=== PATIENT | female | born 1995 | race Caucasian/White ===

== ENCOUNTER → 2018-08-23 12:30 | Outpatient (CLI) | payer MEDICAID | END | disposition home or self-care (01) | LOC: D.LDO 12:30 | PROVIDERS: ATTEND Obstetrics & Gynecology | DX: O26.899 Other specified pregnancy related conditions, unspecified trimester (principal); Z3A.00 Weeks of gestation of pregnancy not specified ==

== ENCOUNTER 2018-09-24 06:05 | Inpatient (IN) | payer MEDICAID ==
[~2018-09-24] VITALS: Ht 170.2 cm; Wt 125.2 kg
[2018-09-24 06:46] LABS: HEMATOCRIT 31.7 % (36.0-48.0); HEMOGLOBIN 9.9 g/dL (12-16); MCH 25.7 pg (26.0-34.0); MCHC 31.2 g/dL (31.0-37.0); MCV 82.3 fL (80.0-100.0); MEAN PLATELET VOLUME 10.9 fL (7.4-10.4); RBC 3.85 10x6/uL (4.00-5.40); RDW 14.9 % (11.5-14.5); WBC 8.8 10x3/uL (4.8-10.8)
[2018-09-24] MEDS ORDERED: PRENAVITE1 TAB PO (06:49)
[2018-09-24 06:50] VITALS: BP 110/60; Ht 170.2 cm; Wt 125.2 kg
[2018-09-24] MEDS ORDERED: FERROUS SULFAT325 MG PO (06:50)
[2018-09-24 07:35] LABS: APPEARANCE CLEAR (CLEAR); BILIRUBIN NEGATIVE (NEGATIVE); COLOR YELLOW (YELLOW); GLUCOSE NEGATIVE (NEGATIVE); KETONE NEGATIVE (NEGATIVE); NITRITE NEGATIVE (NEGATIVE); PROTEIN NEGATIVE (NEGATIVE); UROBILINOGEN NORMAL (NORMAL)
--- NOTE | 2018-09-24 09:30 | NUR ---
FUNDUS PALPATED. FIRM AND MIDLINE.
[2018-09-24 10:15] VITALS: BP 114/54
--- NOTE | 2018-09-24 10:15 | NUR ---
REC'D PT VIA BED BACK FROM RECOVERY POST PRIMARY W/BILATERAL TUBAL LIGATION. PT AA&O X 4. PAIN ASSESSED. PT RATES PAIN 3/10. BREATH SOUNDS CL/=,BOWEL SOUNDS PRESENT X4, BUT HYPOACTIVE. ABD SOFT, NON DISTENDED, FUNDUS FIRM,U/2,SMALL RUBRA LOCHIA AND CLOTS NOTED W/MASSAGE. PERICARE DONE AND PAD PLACED. FUNES CATH IN PLACE AND DRAINING VIA GRAVITY AT BEDSIDE. APRROX 200ML NOTED AND DUMPED. SCD WRAPS ON BILATERALLY. CONNECTED TO PUMP. PUMP IS ON AND FUNCTIONING. POC AND POST TEACHING DONE. PT VERBALZIES UNDERSTANDING AND AGREEABLE. DILUADID ELECTRONICS TEACHER INITITAED TO LEFT WRIST PIV. ELECTRONICS TEACHER BUTTON TEACHING PROVIDED. I.S. PROVIDED W/TEACHING. PT RECEPTIVE AND AGREEABLE. T/C/D TEACHING PROVIDED.
--- NOTE | 2018-09-24 10:30 | NUR ---
FUNDUS FIRM,U/2, SMALL RUBRA LOCHIA NOTED. NO BLOOD CLOTS EXPRESSED W/MASSAGE. ICE CAP TO ABD. COUGH PILLOW PROVIDED. [facility] MUG W/ICE WATER SERVED. BED LOW, SIDE RAILS UP X 2.CALL LIGHT AND TOMBSTONE ERECTOR BUTTON AT PT'S SIDE.
--- NOTE | 2018-09-24 10:45 | NUR ---
PT REMAINS AA&O X4. STILL RATES PAIN 06/13. TORADOL ADMINISTERED. SEE EMAR. PT DENIES NEEDING FURTHER PAIN INTERVENTIONS AT THIS TIME. FAMILY TO BEDSIDE. TO ROOM AT THISTIME PER NBN NURSE Phoebe MNOTEZ LPN.
[2018-09-24 10:47] VITALS: BP 105/55
--- NOTE | 2018-09-24 11:00 | NUR ---
FUNDUS FIRM,U/2, SMALL RUBRA LOCHIA NOTED. NO BLOOD CLOTS EXPRESSED W/MASSAGE. RATES PAIN 3/10. PT DENIES NEEDS AT PRESENT. FAMILY AT BEDSIDE.
--- NOTE | 2018-09-24 11:27 | NUR ---
THIS RN TO BEDSIDE. FUNDUS FIRM,U/U, SMALL RUBRA LOCHIA NOTED. PERICARE DONE. CLEAN PERIPAD PLACED. INCISION C/D/I W/SMALL WHITE BANDAGE COVERING. FAINT BLEEDING NOTED. NO DRAINAGE NOTED. PT PERFORMS I.S. X 3. COUGHS W/GOOD EFFORT. RATES PAIN 1/10. DENIES NEEDS AT THIS TIME. Q 15MIN VITALS STOPPED AT THIS TIME TO CONTINUE W/Q 4HRS SHIFT. PHONE AT PT'S SIDE. PT DENIES NEEDING DILAUDID ICE SKATING TEACHER AT THIS TIME.
--- NOTE | 2018-09-24 14:30 | NUR ---
TO PT'S ROOM, PT IS SITTING UP IN THE BED HOLDING . VISITOR AT BEDSIDE. LARGE GLASS OF ICE WATER SERVED TO PT AT HER REQUEST. FUNES CATH CONTINUES TO DRAIN LIGHT YELLOW URINE. PT DENIES NEEDS AT THIS TIME. SRUP X2, CALL LIGHT AND PHONE WITHIN REACH. PT DENIES SOB, NAUSEA, OR DIFFICULTY BREATHING.
[2018-09-24 15:26] LABS: BASOPHILS 0.1 % (0-2); EOSINOPHILS 0.2 % (0-7); HEMATOCRIT 27.9 % (36.0-48.0); HEMOGLOBIN 8.7 g/dL (12-16); IMMATURE GRANULOCYTES 0.2 % (0-5); LYMPHOCYTES 14.8 % (15-50); MCH 25.7 pg (26.0-34.0); MCHC 31.2 g/dL (31.0-37.0); MCV 82.5 fL (80.0-100.0); MEAN PLATELET VOLUME 10.4 fL (7.4-10.4); MONOCYTES 5.6 % (2-11); NEUTROPHILS 79.1 % (40-80); RBC 3.38 10x6/uL (4.00-5.40)
[2018-09-24 15:28] LABS: PLATELET COUNT 170 10x3/uL (130-400); WBC 13.1 10x3/uL (4.8-10.8)
--- NOTE | 2018-09-24 18:45 | NUR ---
PT SITTING UP IN THE BED INFANT. SMALL RUBRA LOCHIA NOTED, PERICARE DONE WITH WARM WET WASHCLOTHS. PERIPADS APPLIED. 4 DIME SIZED AREAS TO LEFT AND MID MIDDLE OF DRESSING NOTED TO BE LIGHT PINK IN COLOR, PLACES CIRCLED FOR FUTURE COMPARISON, OTHERWISE DRESSING C/D/I. ABD PALPATES SOFT. FRESH ICE PACK PLACED OVER GOWN TO INCISION. PT RATING PAIN TO INCISIONAL SITE 3/10, DENIES OTHER NEEDS. SRUP X 2, CALL LIGHT AND PHONE WITHIN REACH. VISITOR AT BEDSIDE.
[2018-09-24 18:48] VITALS: BP 102/57
--- NOTE | 2018-09-24 18:55 | NUR ---
PT CONTINUES TO BREASTFEED, DOES NOT WANT TO BE DISTURBED AT THIS TIME.
--- NOTE | 2018-09-24 19:45 | NUR ---
C/O PAIN 4-08/13. CONDUIT REAMER OPERATOR CURRENTLY INFUSING. DISCUSSED OPTIONS FOR BOLUS DOSE. PT REQUEST BOLUS. GIVEN PER REQUEST. VERIFIED BY Brittney ALEX RN.
--- NOTE | 2018-09-24 19:51 | NUR ---
SHIFT ASSESSMENT COMPLETED PER FLOWSHEET. FUNDUS FIRM, MIDLINE AND U2 WITH SCANT RUBRA LOCHIA, NO CLOTS NOTED. PT MOVING INDEPENDENTLY IN BED. CHUX, PADS, AND TOWELS CHANGED. FUNES AND PERICARE DONE. BOWEL SOUNDS PRESENT AND ACTIVE X4 QUADS. FUNES DRAINING TO BEDSIDE DRAINAGE WITH 150 MLS YELLOW URINE NOTED IN UROMETER. PT REPORTS THAT SHE HAS NOT PASSED FLATUS, "BUT I FEEL GAS BUILDING. I REALLY WANT TO GET UP TO WALK SOON I CAN." PLAN OF CARE DISCUSSED, VERBALIZES UNDERSTANDING AND AGREEMENT CURRENTLY. LOWER TRANSVERSE DRSG COVERING INCISION. NO NEW DRAINAGE NOTED FROM AREAS PREVIOUSLY MARKED BY DAY SHIFT RN. REPORTS THAT PAIN "IS ALREADY GETTING BETTER. 3-07/14 INSTEAD OF 4-510." REPORTS THAT PAIN IS INTERMITTENT ABD CRAMPING, "ESPECIALLY DURING AND AFTER " AND INCISIONAL BURNING, STINGING, AND SORENESS. EDUCATED ON PAIN MGMT TECHNIQUES INCLUDING USE OF CLINICAL APPEALS SPECIALIST BUTTON NEEDED, ICE PACK, AND REPOSITIONING IN BED. INCENTIVE SPIROMETER USED X5 WITH GOOD EFFORT, COUGH AND DEEP BREATHING DONE WITH GOOD EFFORT. EDUCATED ON IMPORTANCE OF USE OF INCENTIVE SPIROMETER AND COUGH/TURNING/DEEP BREATHING AT LEAST Q 2 HR, VERBALIZES UNDERSTANDING. REPOSITIONED SELF FROM BACK TO RT SIDE WITH NO ASSISTANCE, PILLOW PLACED BEHIND BACK FOR COMFORT AND SUPPORT. SCD'S OFF BLE PER PT REQUEST, STATES "MY LEGS ARE REALLY HOT. I JUST NEED A BREAK FROM THEM TO COOL DOWN AND TO BE ABLE TO MOVE MY LEGS BETTER." AGREEABLE FOR SCD'S TO BE PLACED BACK ON BLE IN 1-2 HOURS, EDUCATED ON IMPORTANCE OF SCD'S IN PREVENTION OF DVT'S, VERBALIZES UNDERSTANDING. FRIEND AT BEDSIDE, SUPPORTIVE AND ATTENTIVE TO PT AND NEEDS. ICE WATER PROVIDED. DENIES ADDITIONAL NEEDS. BED IN LOW POSITION WITH UPPER SIDE RAILS RAISED X2. CALL LIGHT AND PHONE WITHIN REACH. WILL CONTINUE TO MONITOR.
--- NOTE | 2018-09-24 20:41 | NUR ---
CHANGING INFANTS DIAPER. PAIN CURRENTLY 1-2 FOLLOW BOLUD DOSE FROM PACKING AND STAMPING MACHINE OPERATOR. DENIES NEEDS AT THIS TIME. QUESTIONS RN ABOUT SITTING ON EDGE OF BED. RN ASSISTED TO SITTING POSITION ON EDGE OF BED. REMAINED IN SITTING POSITION FOR 5 MINUTES. ASSISTED BACK TO HIGH FOWLERS POSITION IN BED. POSITIONED SELF UP IN BED. INCENTIVE SPIROMETER USED. COUGH AND DEEP BREATHING DONE WITH GOOD EFFORT. DENIES NEEDS. BED IN LOW POSITION WITH UPPER SIDE RAILS RAISED X2. CALL LIGHT AND PHONE WITHIN REACH. REQUESTS TO LEAVE SCD'S OFF AT THIS TIME. WILL CONTINUE TO MONITOR.
--- NOTE | 2018-09-24 21:21 | NUR ---
BONDING WITH INFANT IN ARMS. C/O "ITCHING FROM HEAD TO TOE. IT STARTED ON JUST MY FACE BUT I HAVE NOTICED IT HAPPENS AFTER I USE MY BUTTON AND IT HAS GOTTEN TO WERE IT IS ALL OVER." CONTINUES TO REPORT THAT SHE WOULD LIKE TO GET OUT OF BED AND AMBULATE ALSO. WILL NOTIFY DR. KNIGHT.
--- NOTE | 2018-09-24 21:24 | NUR ---
DR. KNIGHT NOTIFIED OF PT C/O ITCHING FOLLOWING USING APPROVER BUTTON AND REQUEST TO AMBULATE ON UNIT. ORDERS REC'D FOR 1 TIME DOSE OF 50 MG IVP BENADRYL, D/C FUNES, AMBULATE, SL PIV, AND ADVANCE DIET TOLERATED. PT NOTIFIED OF NEW ORDERS AND UPDATED ON PLAN OF CARE, VERBALIZES APPRECIATION AND UNDERSTANDING. CURRENTLY BREAST FEEDING AND REQUESTS TO COMPLETE PRIOR TO HAVING FUNES D/C'D.
--- NOTE | 2018-09-24 21:34 | NUR ---
50 MG IVP BENADRYL GIVEN PER ORDER. EDUCATED ON MEDICATION USE AND POSSIBLE SIDE EFFECTS. ENCOURAGED TO INCREASE PO INTAKE, VERBALIZES UNDERSTANDING. DENIES QUESTIONS. WILL NOTIFY RN WHEN IS COMPLETE. ICE WATER PROVIDED. DENIES ADDITIONAL NEEDS AT THIS TIME. BED IN LOW POSITION WITH UPPER SIDE RAILS RAISED X2. CALL LIGHT AND PHONE WITHIN REACH. WILL CONTINUE TO MONITOR AND ASSIST PRN.
--- NOTE | 2018-09-24 22:32 | NUR ---
BONDING WITH . C/O PAIN 06/13, ABD CRAMPING AND INCISIONAL BURNING AND STINGING. "I JUST FEEL SORE FROM BEING IN THIS BED." PIV SL, FLUSHES WITHOUT DIFFICULTY. PT REQUEST TORADOL, STATES "IT SEEMS TO HELP PAIN BETTER THAN MY BUTTON." NORCO GIVEN ALSO PER PT REQUEST. FUNES D/C'D WITH 480 MLS YELLOW URINE EMPTIED FROM FUNES. DISCUSSED REMAINING IN BED UNTIL URGE TO VOID WAS FELT OR GETTING UP NOW. STATES "I WANT UP NOW." REPORTS FEELING "GAS PAIN BUT I JUST CAN'T GET IT TO MOVE AND I KNOW IT'S BECAUSE I HAVEN'T BEEN UP AND MOVING YET." ASSISTED TO EDGE OF BED, SAT ON EDGE OF BED FOR 3 MINUTES, DENIES DIZZINESS. PT TO STANDING POSITION WITH STAND BY ASSIST OF RN, CONTINUES TO DENY DIZZINESS, INSTRUCTED TO CONTINUE BREATHING, AVOIDING HOLDING BREATH AND TAKING SMALL STEPS INITIALLY, VERBALIZES AND DEMONSTRATES UNDERSTANDING. AMBULATORY TO BATHROOM WITH STANDBY ASSIST, STEADY GAIT NOTED, CONTINUES TO DENY DIZZINESS. PERICARE DONE PER PT, STAT LOCK FOR FUNES REMOVED WITH ALCOHOL PADS. PERIPADS AND PANTIES PROVIDED, VOIDED APPROXIMATELY 50 MLS PINK TINGED URINE IN HAT. SMALL DIME SIZED CLOT NOTED IN HAT. CHUX AND GOWN CHANGED. PT BACK TO BED, SITTING ON EDGE OF BED AT 2258, CONTINUES TO DENY DIZZINESS/LIGHTHEADEDNESS. REQUEST TO AMBULATE IN HALLWAY.
--- NOTE | 2018-09-24 22:58 | NUR ---
AMBULATORY IN [place] WITH STANDBY ASSIST OF RN. STEADY GAIT.
[2018-09-24 23:06] VITALS: BP 116/60
--- NOTE | 2018-09-24 23:15 | NUR ---
BACK TO ROOM FROM AMBULATING IN [place] WITH RN FOR STANDBY ASSIST. PAIN REASSESSMENT COMPLETED, 05/16. STATES "IT FEELS WAY BETTER JUST BEING UP OUT OF THIS BED." STEADY GAIT NOTED DURING AMBULATION, DENIES DIZZINESS AND LIGHTHEADEDNESS. BACK TO BED. VSS. FUNDUS REMAINS FIRM, MIDLINE AND U2 WITH SMALL AMT RUBRA LOCHIA, NO CLOTS NOTED. SCD'S BACK ON BLE. HANDED TO PT PER REQUEST FOR BONDING. ICE PACK AND ICE WATER PROVIDED. DENIES ADDITIONAL NEEDS AT THIS TIME. FRIEND REMAINS AT BEDSIDE, SUPPORTIVE AND ATTENTIVE TO PT AND INFANT NEEDS. BED IN LOW POSITION WITH UPPER SIDE RAILS RAISED X2. CALL LIGHT AND PHONE WITHIN REACH. LOWER TRANSVERSE ABD DRSG REMAINS IN PLACE, NO NEW DRAINAGE NOTED FROM PREVIOUSLY MARKED AREAS. WILL CONTINUE TO MONITOR.
[2018-09-25] VITALS (7 sets, daily range): BP systolic 99–125; BP diastolic 52–60
--- NOTE | 2018-09-25 01:00 | NUR ---
STANDBY ASSIST TO BATHROOM. VOIDED 300 MLS CLEAR LIGHT YELLOW URINE IN HAT, NO CLOTS NOTED. SCANT RUBRA LOCHIA TO PERIPADS. PERICARE DONE PER PT. ORAL CARE DONE PER PT. BACK TO BED. SCD'S OFF BLE PER PT REQUEST. PIV REMOVED FROM RIGHT HAND PER PT REQUEST, PIV TO LEFT WRIST REMAINS IN PLACE. DENIES ADDITIONAL NEEDS. BED IN LOW POSITION WITH UPPER SIDE RAILS RAISED X2. CALL LIGHT AND PHONE WITHIN REACH. WILL CONTINUE TO MONITOR AND ASSIST PRN.
--- NOTE | 2018-09-25 02:40 | NUR ---
C/O PAIN 5/10, ABD SORENESS, CRAMPING WITH INCISIONAL BURNING AND STINGING. NORCO GIVEN PER PT REQUEST AND ORDER. ICE PACK AND ICE WATER PROVIDED. REQUEST SCD'S REMAIN OFF. INCENTIVE SPIROMETER DONE, COUGH AND DEEP BREATHING DONE WITH GOOD EFFORT. REPOSITIONED INDEPENDENTLY TO LEFT SIDE. PILLOW PLACED BEHIND BACK FOR COMFORT AND SUPPORT. VSS. FUNDUS REMAINS FIRM, MIDLINE AND U2 WITH SCANT RUBRA LOCHIA. BED IN LOW POSITION WITH UPPER SIDE RAILS RAISED X2. CALL LIGHT AND PHONE WITHIN REACH. WILL CONTINUE TO MONITOR AND ASSIST PRN.
[2018-09-25 03:15] LABS: BASOPHILS 0.1 % (0-2); EOSINOPHILS 0.5 % (0-7); HEMATOCRIT 26.4 % (36.0-48.0); HEMOGLOBIN 8.2 g/dL (12-16); IMMATURE GRANULOCYTES 0.2 % (0-5); LYMPHOCYTES 16.4 % (15-50); MCH 25.7 pg (26.0-34.0); MCHC 31.1 g/dL (31.0-37.0); MCV 82.8 fL (80.0-100.0); MEAN PLATELET VOLUME 10.8 fL (7.4-10.4); NEUTROPHILS 74.8 % (40-80); PLATELET COUNT 144 10x3/uL (130-400); RBC 3.19 10x6/uL (4.00-5.40); RDW 14.9 % (11.5-14.5); WBC 10.2 10x3/uL (4.8-10.8)
--- NOTE | 2018-09-25 03:23 | NUR ---
PAIN REASSESSMENT COMPLETED. PT CONTINUES TO LAY ON LEFT SIDE. RESPIRATIONS REGULAR AND UNLABORED, NO S/S OF DISTRESS NOTED. BED IN LOW POSITION WITH UPPER SIDE RAILS RAISED X2. CALL LIGHT AND PHONE WITHIN REACH. WILL CONTINUE TO MONITOR AND ASSIST PRN. FRIEND REMAINS AT BEDSIDE RESTING ON COUCH.
--- NOTE | 2018-09-25 04:53 | NUR ---
C/O PAIN 5/10, INTERMITTENT ABD CRAMPING, INCISIONAL BURNING AND STINGING, AND ABD SORENESS. REQUEST MOTRIN, GIVEN PER PT REQUEST. ICE WATER PROVIDED. PT HAD BEEN UP TO VOID PRIOR TO CALLING FOR PAIN MEDS. 600 MLS CLEAR LIGHT YELLOW EMPTIED FROM HAT, NO CLOTS PRESENT. SCD'S BACK ON. INCENTIVE SPIROMETER DONE WITH GOOD EFFORT. COUGH AND DEEP BREATHING DONE WITH GOOD EFFORT. NBN CONTACTED FOR UPDATE ON AND TO REQUEST BE BROUGHT TO ROOM. PER Desire SHEPARD, MASON SHE WILL BRING INFANT TO ROOM PER MOM'S REQUEST. REPORTS THAT SHE FEELS NEED TO PASS FLATUS BUT IS UNABLE TO EVEN AFTER WALKING IN ROOM. ENCOURAGED TO AMBULATE IN [place] ALSO. DR. KNIGHT CONTACTED AND ORDERS REC'D FOR 80 MG PO SIMETHICONE Q4HPRN GAS/HEARTBURN. DENIES ADDITIONAL NEEDS. BED IN LOW POSITION WITH UPPER SIDE RAILS RAISED X2. CALL LIGHT AND PHONE WITHIN REACH.
--- NOTE | 2018-09-25 05:03 | NUR ---
UNABLE TO OVERRIDE SIMETHCONE PER ORDER. MED AVAILABLE ON UNIT. MICHELLE SASH CLAMP OPERATOR NOTIFIED AND WILL COME TO UNIT TO PULL MED. PT NOTIFIED OF ORDER REC'D AND DELAY IN RECEIVING MEDICATION, VERBALIZES UNDERSTANDING.
--- NOTE | 2018-09-25 05:21 | NUR ---
80 MG SIMETHCONE PO GIVEN PER ORDER AND PT REQUEST. EDUCATED ON MED, VERBALIZES UNDERSTANDING AND DENIES QUESTIONS. PREPARING TO BREAST FEED INFANT AT THIS TIME. DENIES ADDITIONAL NEEDS. PAIN 3-10. BED IN LOW POSITION WITH UPPER SIDE RAILS RAISED X2. CALL LIGHT AND PHONE WITHIN REACH. WILL CONTINUE TO MONITOR.
--- NOTE | 2018-09-25 05:53 | NUR ---
UP TO BATHROOM. VOIDED 650 MLS CLEAR LIGHT YELLOW URINE IN HAT. NO CLOTS NOTED. SCANT RUBRA LOCHIA TO PERIPAD. AMBULATORY IN [place] FROM ROOM TO OR DOORS AND TO WAITING ROOM EXIT DOOR, BACK TO ROOM. REPORTS THAT SHE FEELS LIKE SHE NEEDS TO PASS FLATUS BUT STILL HAS NOT BEEN ABLE TO. BOWEL SOUNDS PRESENT AND ACTIVE X4 QUADRANTS. BACK TO ROOM REMAINS SITTING ON EDGE OF BED AT THIS TIME. REFUSES SCD'S CURRENTLY. REQUESTS NORCO FOR INCISIONAL PAIN ONCE IT IS DUE, UPDATED ON TIMES AND WILL PLAN TO MEDICATE PER PT REQUEST. BED IN LOW POSITION WITH UPPER SIDE RAILS RAISED X2. CALL LIGHT PLACED WITHIN PT REACH.
--- NOTE | 2018-09-25 06:15 | NUR ---
PAIN 5/10, SHARP SHOOTING "GAS PAINS", "SOME CRAMPING AND SORENESS" AND INCISIONAL BURNING AND STINGING. NORCO GIVEN PER REQUEST. VSS. FUNDUS REMAINS FIRM MIDLINE AND U2 WITH SCANT RUBRA LOCHIA, NO CLOTS NOTED. LOWER TRANSVERSE ABD DRSG REMAINS INTACT, NO NEW DRAINAGE FROM PREVIOUSLY MARKED AREAS. REFUSES SCD'S AT THIS TIME. DENIES ADDITIONAL NEEDS. BED IN LOW POSITION WITH UPPER SIDE RAILS RAISED X2. CALL LIGHT AND PHONE WITHIN REACH. WILL CONTINUE TO MONITOR AND ASSIST PRN.
[2018-09-25 07:15] LABS: RAPID PLASMA REAGIN Non Reactive (Non Reactive)
--- NOTE | 2018-09-25 07:25 | NUR ---
ASSUMED CARE OF THIS PATIENT. ALERT AND ORIENTED. IN ROOM IN CRIB. S/P C/S DAY 1. 06/13 INCISIONAL/ABDOMINAL SORENESS SHARPNESS. VOIDING WITHOUT DIFFICULTY. HAS NOT PASSED GAS- DISCUSSED METHODS TO HELP RELIEF. C/O GENERALIZED ITCHING. SAYS NOT HAS BAD WITH DILAUDID BUT NOTICED AGAIN AFTER TAKING NORCO. WILL LET DR KNIGHT KNOW. O+, RUBELLA IMMUNE,GBS NEGATIVE, LAST RECEIVED TDAP 07/22/2018. NON-SMOKER. CARE PLAN RESEQUENCED. ANTICIPATE DC HOME TOMORROW. DENIES NEEDING ANYTHING AT THIS TIME. WILL COMPLETE SHIFT ASSESSMENT AFTER BREAKFAST.
--- NOTE | 2018-09-25 07:30 | NUR ---
DR KNIGHT ON L&D INFORMED OF PT CO OF PRURITIS AFTER NORCO. NEW ORDERS RECEIVED FOR BENADRYL AND CHANGE TO PERCOCET SEE V.O. ORDERS WRITTEN.
--- NOTE | 2018-09-25 08:39 | NUR ---
BENADRYL 25 MG GIVEN PO FOR RELIEF OF GENERALIZED PURITIS. NO HIVES OR ERRYTHEMA NOTED. SHIFT ASSESSMENT COMPLETED. SIDERAILS UP. CALL LIGHT IN REACH. VISITOR X 1 IN ROOM. INFANT IN ARMS.
--- NOTE | 2018-09-25 09:36 | NUR ---
DR CHANEY CALLED TO CHECK ON PATIENT. INFORMED THAT PT HAD BEEN NORMALIZED PER DR PEREZ ORDERS, PT WITH C/O PRURITIS WHILE ON DILAUDID AND NORCO BUT SWITCHED TO PERCOCET AND REVIEWED LAST 3 H&H RESULTS WITH MD. PER MD HE WILL BE IN TO SEE HER. PT CURRENTLY SITTING UP IN BED. NURSERY RN RETURNED INFANT TO ROOM. SAYS HER ITCHING IS GETTING BETTER. SIDE RAILS UP X 2, CALL LIGHT IN REACH.
--- NOTE | 2018-09-25 09:50 | NUR ---
HOLDING IN ARMS. SAYS HER PAIN IS ABOUT A 4 STATES "I DON'T THINK I NEED ANYTHING RIGHT NOW BUT I MIGHT IN AWHILE". INSTRUCTED TO USE CALL LIGHT WHEN SHE THINKS SHE WILL NEED MEDICATION. VERBALIZED UNDERSTANDING.
--- NOTE | 2018-09-25 09:51 | NUR ---
DR CHANEY ARRIVED AND TO ROOM TO VISIT PATIENT.
--- NOTE | 2018-09-25 10:13 | NUR ---
PERCOCET 5 MG GIVEN PO FOR RELIEF OF 5/10 INCISIONAL PAIN AFTER DISCUSSING PAIN MANAGEMENT OPTIONS. C/O SORENESS AT SALINE LOCK SITE, REQUEST REMOVAL STATES "HE (DR CHANEY) SAID IT CAN BE TAKEN OUT". SALINE LOCK DC'D WITH TIP INTACT. INSTRUCTED TO CALL WHEN READY TO TAKE A SHOWER. VERBALIZED UNDERSTANDING. SIDE RAILS UP X 2, CALL LIGHT IN REACH, VISITOR ON COUCH HOLDING .
--- NOTE | 2018-09-25 11:27 | NUR ---
COMPLETED SHOWER. LINENS CHANGED. C/O 4-08/13 INCISIONAL ACHING. MOTRIN 600 MG GIVEN PO FOR RELIEF OF PAIN. AND VISITOR IN ROOM. VS OBTAINED. INCISION DRY AND INTACT WITH OLIVIA. INSTRUCTED ON USE OF WHIT-PAD OVER INCISION AND IMPORTANCE OF CHANGING FREQUENTLY. SIDE RAILS UP X 2, CALL LIGHT IN REACH.
--- NOTE | 2018-09-25 12:19 | NUR ---
07/14 PAIN. STATES "IT'S NOT BAD" HAS STARTED PASSING GAS PER PT STATEMENT. ENCOURAGED TO AMBULATE IN [place] AFTER LUNCH. VERBALIZED UNDERSTANDING. NO REQUEST. WAITING ON TRAY. VISITOR AND IN ROOM. SIDE RAILS UP X 2, CALL LIGHT IN REACH.
--- NOTE | 2018-09-25 14:45 | NUR ---
SITTING UP IN BED TALKING TO VISITORS. INFANT REMAINS IN ROOM. NO REQUESTS AT PRESENT. TO CALL IF ANYTHING IS NEEDED. SIDERAILS UP X 2, CALL LIGHT IN REACH.
--- NOTE | 2018-09-25 15:24 | NUR ---
SITTING UP IN BED . SAYS HER PAIN IS "STILL ABOUT THE SAME 3/10 SORENESS". DENIES NEEDING ANYTHING AT THIS TIME. FRESHWATER GIVEN. VISITORS IN ROOM. SIDE RAILS UP X 2, CALL LIGHT IN REACH.
--- NOTE | 2018-09-25 16:39 | NUR ---
RETURNED FROM AMBULATING IN [place]. REQUESTED PAIN MEDICATION FOR 5/10 INCISIONAL BURNING. PERCOCET 10 GM GIVEN PO AFTER DISCUSSING OPTIONS. REGULAR DIET SERVED. VISITORS AND REMAIN IN ROOM. SIDE RAILS UP X 2, CALL LIGHT IN REACH. U/1 FIRM. INCISION INTACT WITH STABLES WITHOUT ERRYTHEMA OR DRAINAGE. SAYS SHE IS NOT HAVING ANY BLEEDING. TO CALL IF ANYTHING IS NEEDED.
--- NOTE | 2018-09-25 18:05 | NUR ---
SITTING UP IN BED . REQUESTED BREAST SHIELD WHICH WAS GIVEN BY NURSERY RN. INCISIONAL ACHING 04/15. FRESH WATER GIVEN. NO ADDITONAL REQUESTS. VISITORS IN ROOM.
--- NOTE | 2018-09-25 19:27 | NUR ---
BEDSIDE REPORT REC'D FROM Ana Cristina COLUNGA RN. PT REC'D SITTING IN HIGH FOWLERS POSITION BONDING WITH . C/O INCISIONAL AND ABD PAIN 5/10. REQUEST MOTRIN, WILL PROVIDE PER ORDER AND PT REQUEST. DENIES ADDITIONAL NEEDS AT THIS TIME. FRIEND RESTING ON COUCH AT BEDSIDE.
--- NOTE | 2018-09-25 19:29 | NUR ---
C/O INCISIONAL AND ABD PAIN, 08/13. MOTRIN GIVEN PER ORDER AND PT REQUEST. CURRENTLY BONDING WITH INFANT. ICE WATER PROVIDED. DENIES ADDITIONAL NEEDS. BED IN LOW POSITION WITH UPPER SIDE RAILS RAISED X2. CALL LIGHT AND PHONE WITHIN REACH. WILL CONTINUE TO MONITOR AND ASSIST PRN.
--- NOTE | 2018-09-25 20:32 | NUR ---
SHIFT ASSESSMENT COMPLETED PER FLOWSHEET. VSS. FUNDUS FIRM, MIDLINE AND U2 WITH SCANT RUBRA LOCHIA, NO CLOTS NOTED. PT REPORTS THAT SHE HAS HAD SCANT LOCHIA ALL DAY AND HAS NOT PASSED ANY CLOTS. STATES THAT SHE IS PASSING FLATUS AND VOIDING WITHOUT DIFFICULTY. BOWEL SOUNDS PRESENT AND ACTIVE X4. C/O INCREASE IN PAIN 6/10 ABD SORENESS AND CRAMPING WITH INCISIONAL BURNING AND STINGING. REPORTS THAT MOTRIN DID NOT DECREASE PAIN AT ALL. PERCOCET GIVEN PER ORDER AND PT REQUEST. SLIGHT ECCHYMOSIS NOTED TO BILATERAL NIPPLES, INSTRUCTED ON PROPER LATCH AND NIPPLE CARE. REPORTS THAT SHE IS NOW USING A SHIELD AND LANOLIN PRN. EDUCATED ON USE OF WARM TEA BAGS ALSO FOR PAIN RELIEF, VERBALIZES UNDERSTANDING. LOWER TRANSVERSE ABD INCISION WELL APPROXIMATED WITH OLIVIA INTACT, NO DRAINAGE OR S/S OF INFECTION. PT VERBALIZED UNDERSTANDING OF INCISIONAL CARE. ICE WATER PROVIDE. TOWELS AND LINENS PROVIDED FOR FRIEND WHO WILL BE STAYING WITH PT TONIGHT. DENIES ADDITIONAL NEEDS. REFUSES SCD'S. STATES THAT SHE IS GOING TO BREAST FEED INFANT THEN AMBULATE ON UNIT. BED IN LOW POSITION WITH UPPER SIDE RAILS RAISED X2. CALL LIGHT AND PHONE WITHIN REACH. WILL CONTINUE TO MONITOR AND ASSIST PRN.
--- NOTE | 2018-09-25 21:23 | NUR ---
PAIN REASSESSMENT COMPLETED. PAIN 1-05/16, "IT'S MUCH BETTER." BONDING WITH SKIN TO SKIN. DENIES NEEDS AT THIS TIME. WILL CONTINUE TO MONITOR AND ASSIST PRN. CONTINUES TO REFUSE SCD'S. BED IN LOW POSITION WITH UPPER SIDE RAILS RAISED X2. CALL LIGHT AND PHONE WITHIN REACH.
--- NOTE | 2018-09-25 22:13 | NUR ---
AMBULATORY IN [place]. STEADY GAIT NOTED. PAIN 3/10, ABD SORENESS AND INCISIONAL BURNING AND STINGING. DENIES NEED FOR INTERVENTION. ICE WATER PROVIDED. DENIES ADDITIONAL NEEDS. WILL CONTINUE TO MONITOR.
--- NOTE | 2018-09-25 23:14 | NUR ---
PT CALLS VIA CALL LIGHT REQUESTS V/S CHECK. STATES THAT SHE JUST COMPLETED AND IS GOING TO GO TO SLEEP AND DOES NOT WANT TO WOKE UP FOR V/S IN AN HOUR OR TWO. VSS. FUNDUS FIRM, MIDLINE AND U2, SCANT RUBRA LOCHIA NO CLOTS NOTED. REPORTS THAT SHE JUST VOIDED. LOWER TRANSVERSE ABD INCISION REMAINS WELL APPROXIMATED WITH OLIVIA INTACT, NO DRAINAGE NOTED. PERIPAD REPLACED OVER INCISION BETWEEN ABD FOLD. ICE WATER PROVIDED. PAIN 3/10, ABD CRAMPING AND SORENESS WITH INCISIONAL BURNING AND STINGING. DENIES NEED FOR INTERVENTION. BED IN LOW POSITION WITH UPPER SIDE RAILS RAISED X2. CALL LIGHT AND PHONE WITHIN REACH. FRIEND REMAINS AT BEDSIDE, SUPPORTIVE AND ATTENTIVE TO PT AND INFANT NEEDS. WILL CONTINUE TO MONITOR.
--- NOTE | 2018-09-26 00:04 | NUR ---
CALLS VIA CALL LIGHT. REQUEST PAIN MEDICATION. C/O PAIN 09/13, ABD SORENESS, CRAMPING AND INCISIONAL BURNING AND STINGING. PERCOCET GIVEN PER REQUEST AND ORDER. ICE WATER PROVIDED. REFUSES SCD'S. DENIES ADDITIONAL NEEDS. STATES THAT SHE IS GOING TO TRY TO SLEEP WHILE INFANT IS SLEEPING. IN OPEN CRIB AT BEDSIDE. FRIEND REMAINS AT BEDSIDE, SUPPORTIVE AND ATTENTIVE TO PT AND NEEDS. BED IN LOW POSITION WITH UPPER SIDE RIALS RAISED X2. CALL LIGHT AND PHONE WITHIN REACH. WILL CONTINUE TO MONITOR AND ASSIST PRN.
--- NOTE | 2018-09-26 00:47 | NUR ---
PAIN REASSESSMENT COMPLETED. RESTING WITH EYES CLOSED LAYING ON LT SIDE WITH HOB AT 30 DEGREES. RESPIRATIONS REGULAR AND UNLABORED, NO S/S OF DISTRESS NOTED. PT DOES NOT OPEN EYES WHEN DOOR OPENS AND RN ENTERS ROOM, PT NOT DISTURBED TO ALLOW FOR REST. BED IN LOW POSITION WITH UPPER SIDE RAILS RAISED X2. CALL LIGHT AND PHONE WITHIN REACH. WILL CONTINUE TO MONITOR. FRIEND RESTING ON COUCH AT BEDSIDE. REMAINS IN ROOM RESTING QUIETLY IN OPEN CRIB.
--- NOTE | 2018-09-26 02:36 | NUR ---
LAYING ON RT SIDE RESTING WITH EYES CLOSED WITH HOB AT 15 DEGREES. RESP REGULAR AND UNLABORED, NO S/S OF DISTRESS NOTED. INFANT RESTING QUIETLY IN OPEN CRIB AT BEDSIDE. FRIEND RESTING ON COUCH. BED IN LOW POSITION WITH UPPER SIDE RAILS RAISED X2. CALL LIGHT AND PHONE WITHIN REACH. WILL CONTINUE TO MONITOR AND ASSIST PRN.
--- NOTE | 2018-09-26 03:04 | NUR ---
AMBULATORY IN WIN. STEADY GAIT NOTED. ICE WATER PROVIDED. DENIES ADDITIONAL NEEDS AT THIS TIME.
--- NOTE | 2018-09-26 03:14 | NUR ---
PT. REQUESTING MOTRIN FOR PAIN SCORE OF 4 OF 10 FOR INCISIONAL DISCOMFORT. WITH PT. FOR FEEDING. MOTRIN GIVEN ORDERED. VITAL SIGNS OBTAINED. MALE ON SOFA SLEEPING.
[2018-09-26 03:15] VITALS: BP 110/55
--- NOTE | 2018-09-26 03:58 | NUR ---
PT.LYING ON BACK WITH EYES CLOSED. RESPIRATIONS UNLABORED. IN OPEN CRIB AT BEDSIDE.
--- NOTE | 2018-09-26 05:02 | NUR ---
RESTING WITH EYES CLOSED IN SEMI-FOLWERS POSITION. RESPIRATIONS REGULAR AND UNLABORED, NO S/S OF DISTRESS NOTED. FRIEND SLEEPING ON COUCH. RESTING QUIETLY IN OPEN CRIB. BED IN LOW POSITION WITH UPPER SIDE RAILS RAISED X2. CALL LIGHT AND PHONE WITHIN REACH. WILL CONTINUE TO MONITOR.
--- NOTE | 2018-09-26 06:19 | NUR ---
PT. STANDING BESIDE OPEN CRIB. STATES HER PAIN IS A 6 OF 10 ON PAIN SCALE AND SHE DESIRES PAIN MED.
--- NOTE | 2018-09-26 06:23 | NUR ---
C/O PAIN /, INCISIONAL BURNING AND STINGING WITH ABD CRAMPING. REQUESTS PERCOCET, GIVEN PER ORDER AND PT REQUEST. DENIES ADDITIONAL NEEDS AT THIS TIME. ICE WATER PROVIDED. SITTING UP IN BED BONDING WITH INFANT.
--- NOTE | 2018-09-26 07:10 | NUR ---
PAIN REASSESSMENT COMPLETED. 04/15. DENIES NEEDS AT THIS TIME. CONVERSING WITH FRIEND, IN ARMS. BED IN LOW POSITION WITH UPPER SIDE RAILS RAISED X2. CALL LIGHT AND PHONE WITHIN REACH. WILL CONTINUE TO MONITOR AND ASSIST PRN.
--- NOTE | 2018-09-26 08:05 | NUR ---
ASSUMED CARE OF THIS PATIENT AFTER RECEIVING BEDSIDE REPORT. SITTING UP IN BED GETTING READY TO BREAST FEED . REGULAR DIET AT BEDSIDE. DENIES NEEDING ANYTHING PAIN 2-3/10 INCISIONAL ACHING. DENIES THOUGHTS OF HURTING SELF OR OTHERS. WILL COMPLETE SHIFT ASSESSMENT AFTER BREAST FEEDING AND BREAKFAST.
[2018-09-26 08:06] VITALS: BP 124/59
--- NOTE | 2018-09-26 09:25 | NUR ---
SHIFT ASSESSMENT COMPLETED. NO REQUESTS. IN BED WITH PATIENT. VISITOR ON COUCH. FRESH WATER GIVEN. SIDERAILS UP X2 CALL LIGHT IN REACH. ANTICIPATE DC HOME TODAY. NON SMOKER, RH POSITIVE, RUBELLA IMMUNE, RECEIVED TDAP DURING . TO CALL IF ANYTHING IS NEEDED.
--- NOTE | 2018-09-26 11:25 | NUR ---
C/0 6/10 ABDOMINAL CRAMPING AND INCISIONAL BURNING. MOTRIN 600 MG AND PERCOCET 10 MG GIVEN PO AFTER DISCUSSING PAIN MANAGEMENT OPTIONS. DESIRES BOTH MOTRIN AND PERCOCET. READY TO GO HOME. WAITING ON DUCT LAYER FOR INFANT DC. WILL CONTACT MD FOR DC ORDER WHEN INFANT DC ORDER RECEIVED. SIDE RAILS UP X 2, CALL LIGHT IN REACH.
[2018-09-26 11:28] VITALS: BP 120/68
--- NOTE | 2018-09-26 12:05 | NUR ---
SITTING UP IN BED. SAYS HER PAIN IS MUCH BETTER, NOW 04/15. ASKED WHEN LUNCH WILL BE SERVED. INFORMED IT SHOULD BE COMING SOON. WAITING ON DC HOME. CALL LIGHT IN REACH. TO CALL IF ANYTHING IS NEEDED.
[2018-09-26] MEDS ORDERED: PERCOCET 10-321 EAC1 PO (12:50)
[2018-09-26] MEDS ORDERED: IBUPROFEN600 MG PO (12:51)
--- NOTE | 2018-09-26 13:20 | NUR ---
CONTACTED DR KNIGHT, PHYSICIAN SYSTEMS TEST TECHNICIAN, REGARDING TO LET HIM KNOW IS BEING DC'D. ORDERS RECEIVED. PRESCRIPTIONS LEFT ON CHART BY DR CHANEY YESTERDAY.
--- NOTE | 2018-09-26 14:33 | NUR ---
DC'D AMBULATORY AFTER PROVIDING VERBAL AND WRITTEN DC INFORMATION TO INCLUDE POST OP C/S CARE, PP DEPRESSION, S&S INFECTIONS, DANGER SIGNS, MEDICATION ADMINISTRATION, /BREAST CARE AND FOLLOW-UP. VERBALIZED UNDERSTANDING. ALL BELONGINGS REMOVED FROM ROOM. HAS PRESCRIPTIONS. INFANT IN CARSEAT. FAMILY MEMBER DRIVING CAR.
--- NOTE | 2018-09-27 14:44 | MORECARE ---
CASE MANAGEMENT DISCHARGE SUMMARY PATIENT: BUNNY NAJERA UNIT: [id number] ADM DATE: 09/24/18 AGE: 23 : [birth year] SEX: F ROOM/BED: D.1274 AUTHOR: SATHISH HOLCOMB PHYSICIAN: REFERRING PHYSICIAN: LEILA CHANEY MD DATE OF SERVICE: 09/27/18 Discharge Plan Patient Name: BUNNY [facility]JERA [facility] [facility] 1995 Planned Disposition: Anticipated Discharge Date: Discharge Date: 09/26/2018 Expected LOS: Initial Reviewer: [id number] Initial Review Date: 09/27/2018 Generated: 09/27/18 3:44 pm Patient Name: BUNNY NAJERA Page [id number] at 1444 All edits/amendments must be made on the electronic document DICTATION DATE: 09/27/18 144 MARKETING CAMPAIGN ANALYST: SANKET 09/27/18 1443 RPT#: [id number] DC DATE:09/26/18 STATUS: DIS IN [facility] [address] [place] [address] END OF REPORT
== END 2018-09-26 14:33 | disposition home or self-care (01) | DRG 783 ==
LOC: D.LD 06:05 → D.SDCHOLD 07:30 → D.LD 10:10
PROVIDERS: ADMIT Obstetrics & Gynecology; ATTEND Obstetrics & Gynecology
PROC: 10D00Z1 Extraction of Products of Conception, Low, Open Approach (ICD-10-PCS; principal; 2018-09-24 07:30)
PROC: 0UL70ZZ Occlusion of Bilateral Fallopian Tubes, Open Approach (ICD-10-PCS; 2018-09-24 07:30)
DX: O32.1XX0 Maternal care for breech presentation, not applicable or unspecified (principal); O24.12 Pre-existing type 2 diabetes mellitus, in childbirth; Z3A.39 39 weeks gestation of pregnancy; E11.9 Type 2 diabetes mellitus without complications; Z30.2 Encounter for sterilization